=== PATIENT | female | born 1970 | race Caucasian/White ===

== ENCOUNTER 2016-11-05 14:12 | Emergency (ER) | payer OTHER ==
--- NOTE | 2016-11-05 15:37 | ERPHSYRPT ---
- History of Present Illness Time Seen by Provider: 11/05/16 15:31 Source: patient Exam Limitations: no limitations Patient Subjective Stated Complaint: productive cough for 3 weeks Triage Nursing Assessment: productive cough for 3 weeks--green sputum. congestion. fever at home. rt eye matted shut this morning. skin dry and warm. moist cough noted. lungs diminshed Physician History: The patient is a 46-year-old female who complains of a worsening productive cough for 3 weeks. She may have had a fever at times. She is slightly hoarse. She has been producing green sputum and nasal congestion. She smokes. Her past medical history is noncontributory. Timing/Duration: week(s) (3) Cough Quality/Degree: moderate, productive cough Possible Cause: occasional episodes Modifying Factors: Improves With: coughing Associated Symptoms: fever, cough, nasal congestion Allergies/Adverse Reactions: Penicillins Allergy (Verified 11/05/16 15:02) Home Medications: Amitriptyline HCl [Elavil] 50 mg PO HS 11/05/16 [History] Hx Tetanus, Diphtheria Vaccination/Date Given: Yes Hx Influenza Vaccination/Date Given: Yes Hx Pneumococcal Vaccination/Date Given: No Immunizations Up to Date: Yes - Review of Systems Constitutional: Fever Eyes: Discharge Ears, Nose, & Throat: Nose Congestion Respiratory: Cough Cardiac: No Chest Pain, No Edema, No Syncope Abdominal/Gastrointestinal: No Abdominal Pain, No Nausea, No Vomiting, No Diarrhea Genitourinary Symptoms: No Dysuria Musculoskeletal: No Back Pain, No Neck Pain Skin: No Rash Neurological: No Dizziness, No Focal Weakness, No Sensory Changes Psychological: No Symptoms Endocrine: No Symptoms Hematologic/Lymphatic: No Symptoms Immunological/Allergic: No Symptoms All Other Systems: Reviewed and Negative - Past Medical History Pertinent Past Medical History: Yes Psycho-Social History: Depression - Past Surgical History Past Surgical History: Yes Other Surgical History: female surgery. trach as a child - Social History Smoking Status: Current every day smoker Exposure to second hand smoke: Yes Drug Use: none Patient Lives Alone: No - Female History Hx Last Menstrual Period: 1 week - Nursing Vital Signs Nursing Vital Signs: Initial Vital Signs Temperature 97.9 F Temperature Source Oral Pulse Rate 83 Respiratory Rate 20 Blood Pressure [Right Arm] 164/76 Pain Intensity 0 - Physical Exam General Appearance: mild distress Eye Exam: other (right conjunctivitis) Ears, Nose, Throat Exam: normal ENT inspection, TMs normal, pharynx normal, moist mucous membranes Neck Exam: normal inspection, non-tender, supple, full range of motion Respiratory Exam: normal breath sounds, lungs clear, No respiratory distress Cardiovascular Exam: regular rate/rhythm, normal heart sounds Gastrointestinal/Abdomen Exam: soft, No tenderness Pelvic Exam: not done Rectal Exam: not done Back Exam: normal inspection, No CVA tenderness, No vertebral tenderness Extremity Exam: normal inspection, normal range of motion Neurologic Exam: alert, oriented x 3, cooperative, normal mood/affect, sensation nml, No motor deficits Skin Exam: normal color, warm, dry, No rash Lymphatic Exam: No adenopathy SpO2 Interpretation: normal SpO2: 99 Oxygen Delivery: Room Air - Radiology Exams Chest X-ray Interpretation: Teleradiologist Report, Negative (no acute per Dr Gandara.) Ordered Tests: Active Orders 24 hr Category Date Time Status CHEST 2 VIEWS (PA AND LAT) Stat Exams 11/05/16 15:39 Completed - Progress Progress: unchanged Air Movement: good Blood Culture(s) Obtained: No Antibiotics given: Yes - Departure Time of Disposition: 16:38 Departure Disposition: Home Clinical Impression: Bronchitis Condition: Stable Critical Care Time: No Additional Instructions: You have bronchitis. You were given an injection of Rocephin 1 g IM in the ER. Take azithromycin as directed for 5 days. Follow-up as needed. Prescriptions: Azithromycin 250 mg [Zithromax 250 MG TABLET] 250 mg PO ZPACK #6 tablet
--- NOTE | 2016-11-05 16:21 | XRAY ---
Indication: Cough for one week. Comparison: None PA/lateral chest demonstrates normal heart, lungs, and bony thorax with a few incidental calcified granulomas.
[2016-11-05] MEDS ORDERED: Rocephin 1000 MG INJ IM ONE (16:38)
[2016-11-05] MEDS ORDERED: XYLOCAINE 1% HCL 20 ML MDV ONE (16:44)
[2016-11-05] MEDS ORDERED: Rocephin 1000 MG INJ ONE (16:44)
[2016-11-05 17:02] VITALS: BP 130/74; PULSE 78; O2SAT 98
== END 2016-11-05 17:02 | disposition home or self-care (01) ==
LOC: ED 14:12
DX: J40 Bronchitis, not specified as acute or chronic (principal); R05 Cough; R50.9 Fever, unspecified; F17.200 Nicotine dependence, unspecified, uncomplicated
CPT/HCPCS: 71020; 96372; 99283; 99284; J0696